=== PATIENT | male | born 1975 | race Caucasian/White ===

== ENCOUNTER 2017-01-24 19:00 | Emergency (ER) | payer OTHER ==
[2017-01-24] MEDS ORDERED: ACETAMINOPHEN 500 MG TAB PO ONE (20:30)
--- NOTE | 2017-01-24 20:44 | EDPHY ---
H & P Stated Complaint: R elbow red, painful, last night-unknown eitology. Time Seen by Provider: 01/24/17 20:39 - Personal History Current Tetanus/Diphtheria Vaccine: Unsure Current Tetanus Diphtheria and Acellular Pertussis (TDAP): Unsure - Medical/Surgical History Hx Asthma: No Hx Chronic Respiratory Disease: No Hx Diabetes: No Hx Cardiac Disease: No Hx Renal Disease: No Hx Cirrhosis: No Hx Alcoholism: No Hx HIV/AIDS: No Hx Splenectomy or Spleen Trauma: No Other PMH: ORIF L Ankle, hx alcoholism - Social History Smoking Status: Never smoked Constitutional: Initial Vital Signs Temperature (C) 36.8 C 01/24/17 19:09 Heart Rate 72 01/24/17 19:09 Respiratory Rate 16 01/24/17 19:09 Blood Pressure 114/82 H 01/24/17 19:09 O2 Sat (%) 96 01/24/17 19:09 O2 Delivery Mode Room Air Allergies/Adverse Reactions: No Known Allergies Allergy (Unverified 01/24/17 19:14) Home Medications: Medication Instructions Recorded Cephalexin [Keflex (RX)] 500 mg PO TID #30 cap 01/24/17 Doxycycline Hyclate 100 mg PO BID #20 tab 01/24/17 Medical Decision Making - Diagnostics Imaging Results: Imaging Impressions Elbow X-Ray 01/24/17 19:16 Impression: Suspect olecranon bursitis. There is no acute osseous abnormality observed. Imaging: I viewed and interpreted images myself ED Course/Re-evaluation: CHIEF COMPLAINT: Elbow swelling HISTORY OF PRESENT ILLNESS: The patient is a 41 y/o male complaining of right elbow swelling onset today around 16:00. He is unsure if he suffered any preceding trauma to his elbow. This evening he developed associated redness and warmth and the swelling doubled in size. He also now has associated general malaise and feels like he has a fever. He is normally healthy. REVIEW OF SYSTEMS: A 10 point review of systems was performed and is negative with the exception of the elements mentioned in the history of present illness. PHYSICAL EXAM: HR, BP, O2 Sat, RR. Temp noted General Appearance: Alert, well hydrated, appropriate, and non-toxic appearing. Head: Atraumatic without scalp tenderness or obvious injury Eyes: Pupils equal, round, reactive to light and accommodation, EOMI, no trauma , no injection. Nose: Atraumatic, no rhinorrhea, clear. Throat: There is no erythema or exudates, no lesions, normal tonsils, mucus membranes moist. Neck: Supple, nontender, no lymphadenopathy. Respiratory: No retractions, no distress, no wheezes, and no accessory muscle use. Lungs are clear to auscultation bilaterally. Cardiovascular: Regular rate and rhythm, no murmurs, rubs, or gallops. Right radial pulse intact. Good capillary refill all extremities. Gastrointestinal: Abdomen is soft, nontender, non-distended, no masses, no rebound, no guarding, no peritoneal signs. Musculoskeletal: Edema, erythema, warmth, and tenderness localized over right elbow. Normal active ROM of all extremities, atraumatic. Neurological: Alert, appropriate, and interactive. Nonfocal neuro exam. Skin: No rashes, good turgor, no nodules on palpation. Past medical history: Denies Past surgical history: ortho surgery Family history: noncontributory Social history: [employer] DIAGNOSTICS/PROCEDURES/CRITICAL CARE TIME: Right elbow x-ray: suspect bursitis DIFFERENTIAL DIAGNOSIS: The differential diagnosis for the patient's elbow swelling included but was not limited to septic bursitis, fracture, ligamentous injury, contusion, muscular strain. MEDICAL DECISION MAKING: This is a healthy 41 y/o male who presents with a few-hour history of acute onset and worsening right elbow swelling, redness, and warmth. No obvious precipitating trauma. He has associated malaise and subjective fever. X-ray shows no acute fracture. Plan for antibiotic treatment with Keflex and Bactrim, sling, pain medication, and ortho follow up. Return precautions given. He is comfortable with this plan. - Data Points Medications Given: Discontinued Medications Acetaminophen (Tylenol) 1,000 mg PO EDNOW ONE Stop: 01/24/17 20:31 Last Admin: 01/24/17 21:28 Dose: 1,000 mg Hydrocodone Bitart/Acetaminophen ([place] 5/325mg Prepack#6) 1 btl TAKEHOME EDNOW ONE Stop: 01/24/17 21:00 Last Admin: 01/24/17 21:30 Dose: 1 btl Cephalexin HCl (Keflex) 500 mg PO EDNOW ONE PRN Reason: Protocol Stop: 01/24/17 20:57 Last Admin: 01/24/17 21:29 Dose: 500 mg Doxycycline Hyclate (Doxycycline Hyclate) 100 mg PO EDNOW ONE PRN Reason: Protocol Stop: 01/24/17 20:59 Last Admin: 01/24/17 21:30 Dose: 100 mg Departure - Departure Disposition: Home, Routine, Self-Care Clinical Impression: Septic olecranon bursitis of right elbow Condition: Good Instructions: Cephalexin (By mouth), Doxycycline (By mouth), Elbow Bursitis (ED ) Additional Instructions: 1. Use Tylenol and ibuprofen as needed for pain and fever as directed below. 2. Use Vicodin as prescribed for severe pain. 3. Take Doxycycline as prescribed. Be sure to complete the entire prescription. 4. Take Keflex as prescribed. Be sure to complete the entire prescription. 5. Wear sling for comfort. 6. Follow up with Dr. Thomas, orthopedist, in the next few days. 7. Return to the ED for uncontrollable fever, dramatic increase in redness, swelling, or pain, or any other worsening of condition. Adult Pain & Fever Control: We recommend Acetaminophen (Tylenol) and Ibuprofen (Motrin,Advil) for pain and fever control. When fever is high or pain severe, both drugs can be used at the same time, but at different intervals. Please note the time differences. Your dose is: Acetaminophen 650mg every 4 to 6 hours Ibuprofen 600mg every 6-8 hours with food Note: do not take Acetaminophen with Hydrocodone (Vicodin, Lortab) or Oxycodone (Percocet). These medications also contain Acetaminophen. No more than 3000mg of Acetaminophen should be taken in 24 hours (for an adult). Referrals: NONE *PRIMARY CARE P,. [Primary Care Provider] - As per Instructions Everett Thomas MD [Medical Doctor] - As per Instructions Prescriptions: Cephalexin [Keflex (RX)] 500 mg PO TID #30 cap Doxycycline Hyclate 100 mg PO BID #20 tab Report Scribed for: Jono Barnett Report Scribed by: Roya Marin Date of Report: 01/24/17 Time of Report: 20:55
[2017-01-24] MEDS ORDERED: CEPHALEXIN 500 MG CAP PO ONE (20:56)
[2017-01-24] MEDS ORDERED: DOXYCYCLINE HYCLATE 100 MG CAP/TAB PO ONE (20:58)
[2017-01-24] MEDS ORDERED: HYDROCOD/APAP 5/325 PREPACK#6 BTL TAKEHOME ONE (20:59)
[2017-01-24 21:35] VITALS: BP 118/84; PULSE 82; RESP 18; TEMP 98.4; O2SAT 95
== END 2017-01-24 21:35 | disposition home or self-care (01) ==
DX: M70.21 Olecranon bursitis, right elbow (principal)

== ENCOUNTER → 2017-09-25 | Outpatient (CLI) | payer OTHER | LOC: CIMAGING 11:04 | PROVIDERS: ATTEND Physician Assistant | DX: S92.001D Unspecified fracture of right calcaneus, subsequent encounter for fracture with routine healing (principal); Z87.81 Personal history of (healed) traumatic fracture | CPT/HCPCS: 73700-PO ==